=== PATIENT | female | born 1970 | race Caucasian/White ===

== ENCOUNTER 2023-06-13 08:20 | Emergency (ER) | payer OTHER ==
[~2023-06-13] VITALS: Ht 160 cm; Wt 56.7 kg
[~2023-06-13 08:20] MED LIST: PYRIDIUM200 MG PO; SEPTRA DS TABLE1 TAB PO
[2023-06-13] MEDS ORDERED: KETOROLAC TROMETHAMINE 30 MG VIAL IV ONE (08:45)
[2023-06-13 09:36] LABS: HEMATOCRIT 37.7 % (36.0-45.00); HEMOGLOBIN 13.2 g/dL (12.0-15.00); MEAN CELL VOLUME 98.8 fL (80.00-100.00); MEAN CORPUSCULAR HEMOGLOBIN 34.6 pg (27.00-32.0); PLATELET COUNT 228 K/uL (150-450); RED BLOOD COUNT 3.81 M/uL (4.00-6.00); RED CELL DISTRIBUTION WIDTH 12.8 % (11.5-14.5)
[2023-06-13 09:56] LABS: CALCIUM 9.2 mg/dL (8.5-10.1); CREATININE SERUM 0.46 mg/dL (0.55-1.02); GFR 143.21; POTASSIUM 4.25 mEq/L (3.5-5.1)
[2023-06-13 11:23] LABS: URINE APPEARANCE Clear; URINE BILIRRUBIN Negative (NEGATIVE); URINE BLOOD Negative; URINE COLOR Yellow; URINE GLUCOSE Negative (NEGATIVE); URINE LEUKOCYTE Negative; URINE NITRATE Negative; URINE PROTEIN Negative (NEGATIVE); URINE UROBILINOGEN 0.2 E.U./dl
[2023-06-13 11:26] LABS: URINE BACTERIA 25.1 uL (0.0-1933)
[2023-06-13 11:42] LABS: URINE EPITHELIAL CELLS 0.4 uL (0.0-38.8); URINE RBC 0.9 uL (0.0-20.8); URINE WBC 0 uL (0.0-23.2)
[2023-06-13] MEDS ORDERED: CIPRO500 MG PO (17:26)
[2023-06-13] MEDS ORDERED: PROBIOTIC1 EAC2 PO (17:26)
[2023-06-13] MEDS ORDERED: METRONIDAZOLE500 MG PO (17:26)
[2023-06-13] MEDS ORDERED: LEVSIN/SL0.125 MG SL (17:26)
[2023-06-13] MEDS ORDERED: OMEPRAZOLE40 MG PO (17:26)
[2023-06-13] MEDS ORDERED: METROnidazole 500 MG TABLET PO ONE (17:30)
[2023-06-13] MEDS ORDERED: KETOROLAC TROMETHAMINE 60 MG VIAL IM ONE (17:30)
[2023-06-13] MEDS ORDERED: FAMOtidine 20 MG TABLET PO ONE (17:30)
[2023-06-13] MEDS ORDERED: CIPROFLOXACIN HCL 500 MG TABLET PO ONE (17:30)
== END 2023-06-13 18:02 | disposition home or self-care (01) ==
LOC: ER 08:20
PROVIDERS: Emergency Medicine
DX: K57.32 Diverticulitis of large intestine without perforation or abscess without bleeding (principal); D25.9 Leiomyoma of uterus, unspecified; Q63.2 Ectopic kidney